=== PATIENT | female | born 1945 | race Caucasian/White ===

== ENCOUNTER → 2016-09-29 | Outpatient (CLI) | payer OTHER | LOC: BHFA 08:30 | PROVIDERS: ATTEND Internal Medicine Interventional Cardiology | DX: I35.1 Nonrheumatic aortic (valve) insufficiency (principal); I34.0 Nonrheumatic mitral (valve) insufficiency ==

== ENCOUNTER → 2017-12-02 | Outpatient (CLI) | payer OTHER | LOC: BHFA 15:30 | PROVIDERS: ATTEND Internal Medicine Cardiovascular Disease | DX: I34.0 Nonrheumatic mitral (valve) insufficiency (principal) ==

== ENCOUNTER 2017-12-08 19:10 | Emergency (ER) | payer OTHER ==
--- NOTE | 2017-12-08 19:33 | EDPHY ---
H & P Smoking Status: Never smoked Time Seen by Provider: 12/08/17 19:18 HPI/ROS: CHIEF COMPLAINT: Right knee pain HISTORY OF PRESENT ILLNESS: Patient has been driving back and forth from [place], just got back from [place] for a family event and while walking to baggage claim at her right knee gave out and pain on weight-bearing or with flexing at a lot. She has had some tingling and burning in her right calf for the past 3 days does not know if it is related. The right knee pain is mild at rest and worse with weight-bearing. Does not currently radiate. Not associated with skin changes or redness or fever or weakness or numbness in the right foot or back pain. No incontinence or urinary or bowel or bladder symptoms. REVIEW OF SYSTEMS: Eye: no change in vision ENT: No ENT symptoms Cardiac: No chest pain Pulmonary: no cough or SOB Abdomen: No abdominal pain Musculoskeletal: HPI Skin: no rash Neuro: No weakness or numbness in legs. Constitutional: no fever : no urinary symptoms A comprehensive 10 point review of systems is otherwise negative aside from elements mentioned in the history of present illness. PAST MEDICAL HISTORY: HTN , cholesterol Social history: Nonsmoker General Appearance: Alert and conversant, cooperative. Eyes: No scleral icterus. ENT, Mouth: Normal mucous membranes. Respiratory: Normal respiratory effort, breath sounds equal, lungs are clear to auscultation. Cardiovascular: Regular rate and rhythm. Gastrointestinal: Abdomen is soft and non tender. Neurological: Alert, face symmetric, normal motor and sensory in extremities. Toes downgoing bilaterally. No clonus. Skin: Warm and dry, no rashes. No warmth or erythema over the knee. Musculoskeletal: Good passive ROM but flexion limited by pain. She has tenderness with compression of the lateral compartment in the knee, stable to varus and valgus stress and anterior and posterior drawer, Gely's negative. No calf tenderness. Psychiatric: Not agitated. Emergency Department course/MDM: I think that DVT is less likely but recent travel and calf pain, ultrasound ordered. Knee is stable and no trauma, x-ray ordered, more likely meniscal injury but cannot exclude ACL PCL or other internal injury at this time. Plan for crutches and knee immobilizer, orthopedic follow-up. 2000: Xray right knee personally interpreted normal, results discussed with patient. If US negative, plan as above. (Fernando Bledsoe) Constitutional: Initial Vital Signs Temperature (C) 36.7 C 12/08/17 19:10 Heart Rate 60 12/08/17 19:10 Respiratory Rate 16 12/08/17 19:10 Blood Pressure 143/83 H 12/08/17 19:10 O2 Sat (%) 94 12/08/17 19:10 O2 Delivery Mode Room Air Allergies/Adverse Reactions: No Known Allergies Allergy (Verified 12/08/17 19:15) Home Medications: Medication Instructions Recorded Alprazolam [Xanax 2mg] 0 mg PO TID 03/21/11 Atorvastatin Calcium [Lipitor] 0 mg PO 03/21/11 Ramipril 0 mg PO 03/21/11 Valacyclovir HCl [Valacyclovir] 1,000 mg PO TID #21 tablet 03/21/11 Hydrochlorothiazide 12/08/17 Medical Decision Making Other Provider: I assumed care of the patient at 8pm from Dr. Bledsoe with instructions were to review ultrasound results. DC home if negative. 9:00 p.m.: I am informed by Dr. Conteh that the patient's ultrasound is negative. She will be discharged home per Dr. Bledsoe's plan. ([facility]) Departure - Departure Disposition: Home, Routine, Self-Care Clinical Impression: Right knee pain Qualifiers: Chronicity: acute Qualified Code(s): M25.561 - Pain in right knee Condition: Good Instructions: Knee Immobilizer (ED) Additional Instructions: No blood clot and normal x-ray. Wear knee immobilizer as needed. Please follow-up with orthopedic surgeon either Dr. Tilley on-call or Dr. Casey your family's orthopedist. It is possible that you have a meniscal injury or other internal or ligament injury in your knee. Referrals: Jones Fernandez MD [Medical Doctor] - As per Instructions Gabriel Tilley MD [Medical Doctor] - As per Instructions Emeterio Casey MD [Medical Doctor] - As per Instructions
[2017-12-08 21:25] VITALS: BP 161/80
== END 2017-12-08 21:24 | disposition home or self-care (01) ==
DX: M25.561 Pain in right knee (principal); I10 Essential (primary) hypertension
CPT/HCPCS: 73564; 93971; 99284; L1830

== ENCOUNTER → 2017-12-29 | Outpatient (CLI) | payer OTHER | LOC: BHFA 10:15 | PROVIDERS: ATTEND Physician Assistant | DX: I35.9 Nonrheumatic aortic valve disorder, unspecified (principal); E78.00 Pure hypercholesterolemia, unspecified; I10 Essential (primary) hypertension; I34.0 Nonrheumatic mitral (valve) insufficiency ==